=== PATIENT | female | born 1940 | race Caucasian/White ===

== ENCOUNTER 2018-03-19 05:58 | Day surgery (SDC) | payer MEDICARE ==
[~2018-03-19] VITALS: Ht 167.6 cm; Wt 89.4 kg
[~2018-03-19 05:58] MED LIST: ACET120S PO; ADVIL100 MG PO; CHOL10002 PO; DICLO GEL1 EACH TOP; FOLI1 PO; Inderal60 MG PO; MELO7.5 PO; Norco 5-325 Ta1 EACH PO; OSTEO MATRIX PO; PRED10; Slow Release I160 MG PO; VENL75ER PO; Vitamin B Comple1 EA PO
[2018-03-20 04:40] LABS: BASOPHILS ABSOLUTE AUTO 0.02 K/mm3 (0.00-0.23); BASOPHILS PERCENT AUTO 0 % (0-2); EOSINOPHILS PERCENT AUTO 0 % (0-6); Hematocrit 37.4 % (33.0-51.0); Hemoglobin 12.4 g/dL (11.5-16.0); IMMATURE GRAN ABSOLUTE AUTO 0.05 K/mm3 (0.00-0.10); IMMATURE GRAN PERCENT AUTO 0 % (0-1); LYMPHOCYTES ABSOLUTE AUTO 0.92 K/mm3 (0.84-5.20); LYMPHOCYTES PERCENT AUTO 6 % (21-46); MONOCYTES PERCENT AUTO 5 % (4-13); Mean Corpuscular HGB Conc 33.2 g/dL (31.5-36.5); Mean Corpuscular Volume 94 fL (80-100); Mean Platelet Volume 8.9 fL (9.1-12.4); NEUTROPHILS ABSOLUTE AUTO 14.69 K/mm3 (1.96-9.15); NEUTROPHILS PERCENT AUTO 89 % (41-73); Platelet Count 219 K/mm3 (150-400); RDW Coefficient Variation 12.6 % (11.7-14.2); RDW Standard Deviation 42.8 fL (35.1-46.3); White Blood Cell Count 16.48 K/mm3 (4.00-11.30)
[2018-03-20 05:00] LABS: Anion Gap 7 mmol/L (6-16); Blood Urea Nitrogen 18 mg/dL (8-24); Bun/Creatinine Ratio 21.5 (12.0-20.0); CO2, Blood 27 mmol/L (21-32); Calcium, Blood 8.6 mg/dL (8.5-10.1); Chloride, Blood 106 mmol/L (98-108); Creatinine, Blood 0.84 mg/dL (0.40-1.00); Glomerular Filtration Rate >60 (60-); Glucose, Blood 130 mg/dL (70-99); Magnesium, Blood 2.2 mg/dL (1.6-2.4); Potassium, Blood 3.9 mmol/L (3.5-5.5); Sodium, Blood 140 mmol/L (136-145)
[2018-03-20] MEDS ORDERED: ENOX40I SC (10:08)
[2018-03-20] MEDS ORDERED: Percocet 5-3251 EACH PO (10:09)
== END 2018-03-20 12:32 | disposition home or self-care (01) ==
LOC: ORSCMMR 05:58 → ORD 11:00 → SURS 11:19 → ORSCMMR 03-20 12:32
PROVIDERS: Orthopaedic Surgery
PROC: 0SRD0J9 Replacement of Left Knee Joint with Synthetic Substitute, Cemented, Open Approach (ICD-10-PCS; principal; 2018-03-19 07:30)
PROC: 8E0YXBZ Computer Assisted Procedure of Lower Extremity (ICD-10-PCS; principal; 2018-03-19 07:30)
DX: M17.12 Unilateral primary osteoarthritis, left knee (principal); M79.7 Fibromyalgia; Z79.899 Other long term (current) drug therapy
CPT/HCPCS: 36415; 73560-LT; 80048; 83735; 85025; 86850; 86900; 86901; 88300; 97110; 97116; 97162; 97530; C1713; C1776; G8978; G8979; J0171; J0690; J0735; J1650; J1885; J2250; J2795; J3010; J7120

== ENCOUNTER 2018-09-17 09:25 | Day surgery (SDC) | payer MEDICARE ==
[~2018-09-17] VITALS: Ht 165.1 cm; Wt 84.4 kg
[~2018-09-17 09:25] MED LIST changes: +Alph-E-Mixed400 UNIT PO; +ENOX40I SC; +NAPR220 PO; +Percocet 5-3251 EACH PO; +Sudogest30 MG PO; +VOLTAREN100 GM TOP
--- NOTE | 2018-09-17 10:22 | NUR ---
Ambulatory in Day Surgery History, Chart, Medications and Allergies reviewed before start of procedure. Lungs clear T/O to Auscultation. Pre-Op teaching done. Pt verbalizes understanding.
--- NOTE | 2018-09-17 12:18 | NUR ---
09/17/18 1218 Salomon Rangel PATIENT STATES SHE "FEELS LIKE SHE IS FLOATING" WHEN SHE TAKES EPINEPHRINE. DISCUSSED W/DR. ARNOLD AND PATIENT, WILL GO AHEAD WITH JOINT COCKTAIL WHICH HAS EPI IN IT.
--- NOTE | 2018-09-17 16:37 | NUR ---
SHIFT SUMMARY PT POST OP S/P R TKA. POST OP VS IN PROGRESS AND STABLE. PT ASYMPTOMATIC. PT DID HAVE SPINAL ANESTHESIA AND HAS NUMBNESS TO RLE BUT IS STILL ABLE TO WIGGLE TOES SLIGHTLY. DRESSING TO KNEE IS CDI WITH POLAR ICE PACK IN PLACE. IVF INFUSING PER ORDERS. SLOWLY LAUREN SIPS OF CLEARS BUT HAS BEEN NAUSEATED--DENIES NEED FOR ANTIEMETICS. PT DENIES PAIN. USES CALL LIGHT APPROPRIATELY.
[2018-09-18 06:00] LABS: BASOPHILS ABSOLUTE AUTO 0.02 K/mm3 (0.00-0.23); BASOPHILS PERCENT AUTO 0 % (0-2); EOSINOPHILS PERCENT AUTO 0 % (0-6); Hematocrit 38.9 % (33.0-51.0); Hemoglobin 12.8 g/dL (11.5-16.0); IMMATURE GRAN ABSOLUTE AUTO 0.07 K/mm3 (0.00-0.10); IMMATURE GRAN PERCENT AUTO 0 % (0-1); LYMPHOCYTES ABSOLUTE AUTO 1.15 K/mm3 (0.84-5.20); LYMPHOCYTES PERCENT AUTO 7 % (21-46); MONOCYTES ABSOLUTE AUTO 0.92 K/mm3 (0.16-1.47); MONOCYTES PERCENT AUTO 6 % (4-13); Mean Corpuscular HGB 30.9 pg (26.0-34.0); Mean Corpuscular HGB Conc 32.9 g/dL (31.5-36.5); Mean Corpuscular Volume 94 fL (80-100); Mean Platelet Volume 8.5 fL (9.1-12.4); NEUTROPHILS ABSOLUTE AUTO 14.07 K/mm3 (1.96-9.15); NEUTROPHILS PERCENT AUTO 87 % (41-73); Platelet Count 225 K/mm3 (150-400); RDW Coefficient Variation 12.9 % (11.7-14.2); RDW Standard Deviation 44.6 fL (35.1-46.3); Red Blood Cell Count 4.14 M/mm3 (3.80-5.20); White Blood Cell Count 16.23 K/mm3 (4.00-11.30)
--- NOTE | 2018-09-18 06:01 | NUR ---
SHIFT SUMMARY PT POD#1. AAOX4. DISCOMFORT CONTROLLED WITH 1 ROXICODONE Q4H. PT WITH SMALL AMOUNTS OF EMESIS X2 THIS SHIFT POST SNACKS. PT ENCOURAGED TO SLOW FOOD INTAKE TOLERATED. IVF CONTINUED PER ORDERS UP TO RESTROOM SBA WITH FWW. DRESSING TO RIGHT KNEE C/D/I. PT UP TO RECLINER FOR BREAKFAST. CALL LIGHT IN REACH. SCDs + TEDs IN PLACE. OSMAN.
[2018-09-18 06:50] LABS: Magnesium, Blood 2.2 mg/dL (1.6-2.4)
[2018-09-18 06:51] LABS: Anion Gap 7 mmol/L (6-16); Blood Urea Nitrogen 18 mg/dL (8-24); CO2, Blood 26 mmol/L (21-32); Calcium, Blood 8.7 mg/dL (8.5-10.1); Chloride, Blood 106 mmol/L (98-108); Creatinine, Blood 0.67 mg/dL (0.40-1.00); Glomerular Filtration Rate >60 (60-); Glucose, Blood 132 mg/dL (70-99); Potassium, Blood 4.1 mmol/L (3.5-5.5); Sodium, Blood 139 mmol/L (136-145)
--- NOTE | 2018-09-18 12:47 | NUR ---
MEDICATION: PT INSTRUCTED ON HOW TO GIVE SELF LOVENOX INJECTIONS SHE WILL DC HOME WITH SCRIPT.
[2018-09-18] MEDS ORDERED: ENOX40I SC (14:37)
[2018-09-18] MEDS ORDERED: ROXICODONE5 MG PO (15:08)
[2018-09-18] MEDS ORDERED: ASPI325EC PO (15:09)
--- NOTE | 2018-09-18 15:40 | NUR ---
DISCHARGE: DC TO HOME AT THIS TIME WITH SPOUSE. PT VERBALIZED UNDERSTANDING OF MEDICATIONS, FOLLOW UP AND INSTRUCTIONS. PT GIVEN SCRIPTS IN PREOP APPOINTMENT. DENIES NEED FOR NAUSEA SCRIPT TO BE CALLED IN. IV DC'D WNL. PT LEFT VIA WHEELCHAIR WITH BELONGINGS.
== END 2018-09-18 15:40 | disposition home or self-care (01) ==
LOC: ORSCMMR 09:25 → ORD 11:00 → SURS 15:16 → ORSCMMR 09-18 15:40 → SURS 09-18 15:40
PROVIDERS: Orthopaedic Surgery
PROC: 0SRC0J9 Replacement of Right Knee Joint with Synthetic Substitute, Cemented, Open Approach (ICD-10-PCS; principal; 2018-09-17 11:00)
PROC: 8E0YXBZ Computer Assisted Procedure of Lower Extremity (ICD-10-PCS; principal; 2018-09-17 11:00)
DX: M17.11 Unilateral primary osteoarthritis, right knee (principal); I10 Essential (primary) hypertension; Z79.899 Other long term (current) drug therapy
CPT/HCPCS: 36415; 73560-RT; 80048; 83735; 85025; 88300; 97110; 97116; 97162; 97530; C1713; C1776; J0171; J0690; J0735; J1100; J1170; J1650; J1885; J2250; J2405; J2704; J2795; J3010; J3370; J7120